=== PATIENT | female | born 1960 | race Caucasian/White ===

== ENCOUNTER 2017-09-22 15:56 | Emergency (ER) | payer OTHER ==
[~2017-09-22] VITALS: Ht 162.6 cm; Wt 74.8 kg
[~2017-09-22 15:56] MED LIST: ALLEGRA ALLERG180 MG; CEFADROXIL500 MG PO; LAMICTAL200 MG; PNEU16DI2; PULMICORT90 MCG/AER; VENTOLIN HFA18 GM
== END 2017-09-22 21:27 | disposition home or self-care (01) ==
LOC: ER 15:56
DX: J44.9 Chronic obstructive pulmonary disease, unspecified (principal); J20.9 Acute bronchitis, unspecified

== ENCOUNTER → 2018-07-22 | Emergency (ER) | payer OTHER ==
[~2018-07-22] VITALS: Ht 162.6 cm; Wt 74.8 kg
== END | disposition left against medical advice (07) ==
LOC: ER 10:02
DX: M79.7 Fibromyalgia (principal)

== ENCOUNTER 2020-09-27 08:18 | Outpatient (CLI) | payer OTHER | END 2020-09-27 08:41 | disposition home or self-care (01) | LOC: RX STUDY 08:18 | PROVIDERS: ATTEND Internal Medicine Pulmonary Disease | DX: R13.11 Dysphagia, oral phase (principal) ==

== ENCOUNTER → 2021-07-01 | Emergency (ER) | payer OTHER ==
[~2021-07-01] VITALS: Ht 162.6 cm; Wt 68.0 kg
[~2021-07-01] MED LIST changes: +ORPHENADRINE C100 MG PO; +SKELAGESIC PO; +ULTRAM50 MG PO
== END | disposition home or self-care (01) ==
LOC: ER 16:45
DX: S00.93XA Contusion of unspecified part of head, initial encounter (principal); S80.02XA Contusion of left knee, initial encounter; S80.01XA Contusion of right knee, initial encounter; S13.9XXA Sprain of joints and ligaments of unspecified parts of neck, initial encounter; S33.5XXA Sprain of ligaments of lumbar spine, initial encounter; W18.39XA Other fall on same level, initial encounter; Y93.9 Activity, unspecified; Y92.89 Other specified places as the place of occurrence of the external cause; Y99.9 Unspecified external cause status; Z88.6 Allergy status to analgesic agent; Z88.0 Allergy status to penicillin; Z88.2 Allergy status to sulfonamides

== ENCOUNTER 2021-07-07 12:15 | Emergency (ER) | payer OTHER ==
[~2021-07-07] VITALS: Ht 162.6 cm; Wt 68.0 kg
== END 2021-07-07 18:00 | disposition home or self-care (01) ==
LOC: ER 12:15
DX: G44.309 Post-traumatic headache, unspecified, not intractable (principal); R42 Dizziness and giddiness; Z88.6 Allergy status to analgesic agent; Z88.0 Allergy status to penicillin; Z88.2 Allergy status to sulfonamides; Z20.822 Contact with and (suspected) exposure to COVID-19

== ENCOUNTER 2022-08-22 15:48 | Emergency (ER) | payer OTHER ==
[~2022-08-22] VITALS: Ht 162.6 cm; Wt 70.3 kg
== END 2022-08-22 19:11 | disposition home or self-care (01) ==
LOC: ER 15:48
DX: S33.5XXA Sprain of ligaments of lumbar spine, initial encounter (principal); X58.XXXA Exposure to other specified factors, initial encounter; Y93.89 Activity, other specified; Y92.89 Other specified places as the place of occurrence of the external cause; Y99.8 Other external cause status; Z88.2 Allergy status to sulfonamides; Z88.0 Allergy status to penicillin

== ENCOUNTER → 2024-07-27 | Emergency (ER) | payer OTHER ==
[~2024-07-27] VITALS: Ht 162.6 cm; Wt 69.9 kg
[~2024-07-27] MED LIST changes: +DEXAMETHASONE SODIUM PHOSPHATE 4 MG/ML VIAL IM STA; +DEXAMETHASONE SODIUM PHOSPHATE 4 MG/ML VIAL ONE; +ORPHENADRINE CITRATE 30 MG/ML AMPUL IM STA; +ORPHENADRINE CITRATE 30 MG/ML AMPUL ONE; +TRAMADOL HCL 50 MG TABLET PO STA
== END | disposition home or self-care (01) ==
LOC: ER 09:21
DX: M62.838 Other muscle spasm (principal); Z88.0 Allergy status to penicillin; Z88.2 Allergy status to sulfonamides; Z88.6 Allergy status to analgesic agent
CPT/HCPCS: 96372; 99282; J1100; J2360